=== PATIENT | female | born 1995 | race Caucasian/White ===

== ENCOUNTER 2017-08-18 13:57 | Emergency (ER) | payer MEDICAID, OTHER ==
[~2017-08-18] VITALS: Ht 152.4 cm; Wt 54.0 kg
[2017-08-18 17:32] LABS: CLARITY URINE CLOUDY (CLEAR); COLOR URINE YELLOW (YELLOW); GLUCOSE URINE NEGATIVE (NEGATIVE); KETONES URINE TRACE (NEGATIVE); LEUKOCYTE ESTERASE URINE 2+ (NEGATIVE); NITRITE URINE NEGATIVE (NEGATIVE); OCCULT BLOOD URINE 2+ (NEGATIVE); PROTEIN URINE NEGATIVE (NEGATIVE); SPECIFIC GRAVITY URINE 1.017 (1.005-1.030)
[2017-08-18 18:40] VITALS: BP 96/59
== END 2017-08-18 19:06 | disposition home or self-care (01) ==
LOC: ER 14:13
DX: N39.0 Urinary tract infection, site not specified (principal)
CPT/HCPCS: 81001; 81025; 99283; Z7610

== ENCOUNTER 2018-07-08 07:07 | Emergency (ER) | payer OTHER ==
[~2018-07-08] VITALS: Ht 152.4 cm; Wt 55.0 kg
[2018-07-08 07:49] LABS: CLARITY URINE CLOUDY (CLEAR); COLOR URINE YELLOW (YELLOW); KETONES URINE NEGATIVE (NEGATIVE); LEUKOCYTE ESTERASE URINE 2+ (NEGATIVE); NITRITE URINE NEGATIVE (NEGATIVE); OCCULT BLOOD URINE NEGATIVE (NEGATIVE); PROTEIN URINE TRACE (NEGATIVE); SPECIFIC GRAVITY URINE 1.024 (1.005-1.030)
[2018-07-08] MEDS ORDERED: IBUPROFEN 600MG TABLET PO ONE (08:15)
[2018-07-08 08:40] VITALS: BP 117/69
== END 2018-07-08 08:42 | disposition home or self-care (01) ==
LOC: ER 07:07
DX: N39.0 Urinary tract infection, site not specified (principal)
CPT/HCPCS: 81003; 81025; 87077; 87086; 99284

== ENCOUNTER 2018-09-16 18:10 | Emergency (ER) | payer MEDICAID, OTHER ==
[~2018-09-16] VITALS: Ht 152.4 cm; Wt 59.0 kg
[2018-09-16 20:14] LABS: CLARITY URINE CLEAR (CLEAR); COLOR URINE YELLOW (YELLOW); KETONES URINE NEGATIVE (NEGATIVE); LEUKOCYTE ESTERASE URINE 2+ (NEGATIVE); NITRITE URINE NEGATIVE (NEGATIVE); OCCULT BLOOD URINE NEGATIVE (NEGATIVE); PH URINE 5.5 (4.5-8.0); PROTEIN URINE NEGATIVE (NEGATIVE); SPECIFIC GRAVITY URINE 1.025 (1.005-1.030)
[2018-09-16 23:43] VITALS: BP 108/72
== END 2018-09-16 23:54 | disposition home or self-care (01) ==
LOC: ER 18:10
DX: N76.0 Acute vaginitis (principal); Z87.440 Personal history of urinary (tract) infections
CPT/HCPCS: 81025; 99283

== ENCOUNTER 2018-12-23 06:10 | Emergency (ER) | payer MEDICAID ==
[~2018-12-23] VITALS: Ht 154.9 cm; Wt 60.0 kg
[2018-12-23 07:15] LABS: CLARITY URINE CLEAR (CLEAR); COLOR URINE YELLOW (YELLOW); KETONES URINE TRACE (NEGATIVE); LEUKOCYTE ESTERASE URINE TRACE (NEGATIVE); NITRITE URINE NEGATIVE (NEGATIVE); OCCULT BLOOD URINE NEGATIVE (NEGATIVE); PROTEIN URINE NEGATIVE (NEGATIVE); SPECIFIC GRAVITY URINE 1.029 (1.005-1.030)
[2018-12-23] MEDS ORDERED: LEVOFLOXACIN 500MG TABLET PO ONE (09:00)
[2018-12-23] MEDS ORDERED: PHENAZOPYRIDINE HCL 100MG TABLET PO ONE (09:00)
[2018-12-23 09:23] VITALS: BP 98/75
== END 2018-12-23 09:26 | disposition home or self-care (01) ==
LOC: ER 06:10
DX: N39.0 Urinary tract infection, site not specified (principal); R10.2 Pelvic and perineal pain
CPT/HCPCS: 81025; 99283

== ENCOUNTER 2024-05-09 13:54 | Emergency (ER) | payer MEDICAID ==
[~2024-05-09] VITALS: Ht 160 cm; Wt 75.0 kg
[2024-05-09 14:07] VITALS: BP 124/84; PULSE 95; RESP 18; TEMP 98.5; O2SAT 98
[2024-05-09 15:15] LABS: HEMATOCRIT 40.9 % (36.0-48.0); HEMOGLOBIN 13.6 g/dL (12.0-16.0); MEAN CORPUSCULAR HGB CONC 33.3 g/dL (31.0-37.0); MEAN CORPUSCULAR VOLUME 93.1 fL (81.0-99.0); PLATELET 235 x1000/uL (130-400); RED BLOOD CELL COUNT 4.39 mill/uL (4.2-5.4); RED CELL DISTRIBUTION WIDTH 13.4 % (11.6-14.6); WHITE BLOOD COUNT 10.1 x1000/uL (4.5-11.0)
[2024-05-09 15:18] LABS: CHLORIDE 109 mEq/L (98-107); POTASSIUM 3.7 mEq/L (3.5-5.1); SODIUM 142 mEq/L (136-145)
[2024-05-09 15:19] LABS: CALCIUM 9.6 mg/dL (8.7-10.4); CARBON DIOXIDE 26 mEq/L (21-32)
[2024-05-09 15:24] LABS: CREATININE 0.7 mg/dL (0.6-1.0); GLUCOSE 108 mg/dL (70-105); UREA NITROGEN BLOOD 8 mg/dL (9-23)
[2024-05-09 15:26] LABS: ALANINE AMINOTRANSFERASE 13 IU/L (10-49); ALBUMIN 4.9 g/dL (3.2-4.8); ASPARTATE AMINOTRANSFERASE 15 IU/L (<34); BILIRUBIN TOTAL 1.3 mg/dL (0.1-1.0); PROTEIN TOTAL 7.4 g/dL (6.0-8.3)
[2024-05-09 15:30] LABS: HCG SCREEN NEGATIVE
[2024-05-09 15:49] LABS: CLARITY URINE CLOUDY (CLEAR); COLOR URINE DARK YELLOW (YELLOW); GLUCOSE URINE NEGATIVE (NEGATIVE); KETONES URINE 1+ (NEGATIVE); LEUKOCYTE ESTERASE URINE TRACE (NEGATIVE); NITRITE URINE NEGATIVE (NEGATIVE); OCCULT BLOOD URINE NEGATIVE (NEGATIVE); PH URINE 7.5 (4.5-8.0); PROTEIN URINE TRACE (NEGATIVE); SPECIFIC GRAVITY URINE 1.029 (1.005-1.030)
[2024-05-09 16:12] LABS: SQUAMOUS EPITHELIAL CELL URINE 2+ /lpf (RARE/1+)
[2024-05-09 16:13] LABS: BACTERIA URINE 4+; MUCUS URINE 2+ /lpf (< = 2+)
[2024-05-09] MEDS ORDERED: CEFP100T8 MT (17:01)
== END 2024-05-09 17:12 | disposition home or self-care (01) ==
LOC: ER 13:54
DX: N12 Tubulo-interstitial nephritis, not specified as acute or chronic (principal)
CPT/HCPCS: 36415; 74176; 80053; 81003; 84703; 85027; 99284